=== PATIENT | male | born 1950 | race Two or more races ===

== ENCOUNTER 2021-02-23 13:00 | Emergency (ER) | payer BC, OTHER ==
[~2021-02-23] VITALS: Ht 177.8 cm; Wt 71.0 kg
[2021-02-23] MEDS ORDERED: MORPHINE SULFATE 4 MG/ML CPJ (NOT FOR IM USE) IV STA (13:56)
[2021-02-23 14:36] LABS: BASOPHILS % 0.5 % (0.0-2.0); EOSINOPHILS % 0.8 % (0.0-5.0); HEMATOCRIT. 43.7 % (42.0-52.0); HEMOGLOBIN. 15.4 g/dL (14.0-18.0); LYMPHOCYTES % 17.7 % (20.0-50.0); MEAN CORPUSCULAR HEMOGLOBIN 31.7 pg (28.0-32.0); MEAN CORPUSCULAR VOLUME 90.2 fL (80.0-94.0); MEAN PLATELET VOLUME 8.2 fl (7.4-10.4); MONOCYTES % 5.9 % (2.0-8.0); NEUTROPHILS % 75.1 % (40.0-76.0); PLATELET 196 x1000/uL (130-400); RED BLOOD CELL COUNT 4.84 mill/uL (4.7-6.1); RED CELL DISTRIBUTION WIDTH 12.9 % (11.6-14.6)
[2021-02-23 14:41] LABS: CHLORIDE 108 mEq/L (98-107)
[2021-02-23 17:40] VITALS: BP 129/84
[2021-02-23] MEDS ORDERED: OXYC-100 MT (17:46)
[2021-02-23] MEDS ORDERED: IBUP-2029 MT (20:19)
== END 2021-02-23 18:38 | disposition home or self-care (01) ==
LOC: ER 13:31
DX: S00.01XA Abrasion of scalp, initial encounter (principal); R07.81 Pleurodynia; Z90.49 Acquired absence of other specified parts of digestive tract; V43.52XA Car driver injured in collision with other type car in traffic accident, initial encounter; Y93.89 Activity, other specified; Y92.488 Other paved roadways as the place of occurrence of the external cause
CPT/HCPCS: 36415; 71101; 80053; 85025; 96374; 99284; J2270